=== PATIENT | male | born 1995 | race African-American/Black ===

== ENCOUNTER 2020-09-02 09:07 | Day surgery (SDC) | payer OTHER ==
[~2020-09-02] VITALS: Ht 165.1 cm; Wt 78.0 kg
[~2020-09-02 09:07] MED LIST: NS 1,000 ML IV ONE; OMEP40CA97 PO
[2020-09-02] MEDS ORDERED: fentaNYL 100 MCG/2 ML INJECTION (J3010) As Ordered ONE (10:22)
[2020-09-02] MEDS ORDERED: LIDOCAINE 2% 100MG/5ML SDV (FOR ANES.) As Ordered ONE (10:31)
[2020-09-02] MEDS ORDERED: propofoL 200 MG/20 ML VIAL As Ordered ONE (10:31)
--- NOTE | 2020-09-02 11:01 | ROOR ---
Patient Name: Fidel Taylor Procedure Date: 09/02/2020 10:47 AM Date of : 1995 Age: 24 Room: [facility] Gender: Male Note Status: Finalized Procedure: Upper Endoscopy + Biopsies Indications: Heartburn, Nausea with vomiting Providers: Naveed Graff MD Referring MD: CHARLOTTE PORTER MD Requesting Provider: Medicines: Monitored Anesthesia Care Complications: No immediate complications. Procedure: Pre-Anesthesia Assessment: - The heart rate, respiratory rate, oxygen saturations, blood pressure, adequacy of pulmonary ventilation, and response to care were monitored throughout the procedure. The Endoscope was introduced through the mouth, and advanced to the second part of duodenum. The upper GI endoscopy was accomplished without difficulty. The patient tolerated the procedure well. Findings: The Z-line was irregular and was found 40 cm from the incisors. Multiple biopsies were obtained with cold forceps for evaluation to rule out Dubon's Esophagus randomly at the gastroesophageal junction. The exam of the stomach was otherwise normal. Biopsies were taken with a cold forceps in the gastric antrum for Helicobacter pylori testing. Localized mildly erythematous mucosa was found in the duodenal bulb. The exam was otherwise without abnormality. Impression: - Z-line irregular, 40 cm from the incisors. - Erythematous duodenopathy. - The examination was otherwise normal. - Multiple biopsies were obtained at the gastroesophageal junction. - Biopsies were taken with a cold forceps for Helicobacter pylori testing. - The examination was otherwise normal. Recommendation: - Patient has a contact number available for emergencies. The signs and symptoms of potential delayed complications were discussed with the patient. Return to normal activities tomorrow. Written discharge instructions were provided to the patient. - Resume previous diet. - Discharge patient to home. - Continue present medications. - Await pathology results. - Telephone GI clinic for pathology results in 1 week. - Return to referring physician. - The findings and recommendations were discussed with the patient. Procedure Code(s): --- Professional --- 55270, Esophagogastroduodenoscopy, flexible, transoral; with biopsy, single or multiple Diagnosis Code(s): --- Professional --- K22.8, Other specified diseases of esophagus K31.89, Other diseases of stomach and duodenum R12, Heartburn R11.2, Nausea with vomiting, unspecified CPT copyright 2019 [employer]. All rights reserved. The codes documented in this report are preliminary and upon teacher vocal review may be revised to meet current compliance requirements. Naveed Graff MD Naveed Graff MD 09/02/2020 11:01:13 AM Electronically signed by Naveed Graff MD Number of Addenda: 0 Note Initiated On: 09/02/2020 10:47 AM Estimated Blood Loss: Estimated blood loss: none.
[2020-09-02 11:25] VITALS: BP 142/67
== END 2020-09-02 11:26 | disposition home or self-care (01) ==
LOC: M OPP 09:07
PROVIDERS: ATTEND Internal Medicine Gastroenterology
DX: K22.8 Other specified diseases of esophagus (principal); K31.89 Other diseases of stomach and duodenum; R12 Heartburn; R11.2 Nausea with vomiting, unspecified; R10.9 Unspecified abdominal pain; F17.210 Nicotine dependence, cigarettes, uncomplicated
CPT/HCPCS: 43239; 88305; J3010